=== PATIENT | male | born 1970 | race Caucasian/White ===

== ENCOUNTER 2021-06-28 04:41 | Day surgery (SDC) | payer BC ==
[2021-06-25 15:41] VITALS: BMI 25.8
[2021-06-28 11:59] VITALS: TEMP 97.3
[2021-06-28 12:36] VITALS: BP 105/65; PULSE 58
== END 2021-06-28 12:36 | disposition home or self-care (01) ==
LOC: JASU-ENDO 04:41
PROVIDERS: ATTEND Internal Medicine Gastroenterology
PROC: 0DB78ZX Excision of Stomach, Pylorus, Via Natural or Artificial Opening Endoscopic, Diagnostic (ICD-10-PCS; 2021-06-28)
PROC: 0DB28ZX Excision of Middle Esophagus, Via Natural or Artificial Opening Endoscopic, Diagnostic (ICD-10-PCS; 2021-06-28)
PROC: 0DB38ZX Excision of Lower Esophagus, Via Natural or Artificial Opening Endoscopic, Diagnostic (ICD-10-PCS; principal; 2021-06-28 10:45)
DX: K21.00 Gastro-esophageal reflux disease with esophagitis, without bleeding (principal); R13.10 Dysphagia, unspecified; Z87.19 Personal history of other diseases of the digestive system
CPT/HCPCS: 88305-TC; 88342-TC

== ENCOUNTER 2022-05-14 04:26 | Day surgery (SDC) | payer BC ==
[2022-05-14 09:42] VITALS: BMI 25.8
[2022-05-14 11:16] VITALS: TEMP 98
[2022-05-14 11:44] VITALS: BP 104/65; PULSE 50; RESP 17
== END 2022-05-14 12:15 | disposition home or self-care (01) ==
LOC: JASU-ENDO 04:26
PROVIDERS: ATTEND Internal Medicine Gastroenterology
PROC: 0DBP8ZX Excision of Rectum, Via Natural or Artificial Opening Endoscopic, Diagnostic (ICD-10-PCS; principal; 2022-05-14 10:15)
DX: Z12.11 Encounter for screening for malignant neoplasm of colon (principal); K57.30 Diverticulosis of large intestine without perforation or abscess without bleeding; K64.8 Other hemorrhoids; K62.0 Anal polyp
CPT/HCPCS: 88305-TC